=== PATIENT | female | born 1960 | race Caucasian/White ===

== ENCOUNTER 2020-09-09 15:05 | Outpatient (REF) | payer OTHER, SELFPAY ==
[2020-09-09 16:42] LABS: Anion Gap 13 (12-20); Blood Urea Nitrogen 17 mg/dL (9-16); Calcium 9.3 mg/dL (8.4-10.2); Carbon Dioxide 30 mmol/L (22-29); Chloride 104 mmol/L (96-108); Estimated Glomerular Filt Rate > 60; Glucose Random 80 mg/dL (60-115); Potassium 4.5 mmol/L (3.3-5.1); Sodium 142 mmol/L (135-145)
[2020-09-09 17:02] LABS: Erythrocyte Sedimentation Rate 7 MM/HR (0-20)
[2020-09-10 09:12] LABS: Lyme Abs Screen <0.90 index
[2020-09-10 09:22] LABS: Syphilis Screen Nonreactive (Nonreactive)
== END 2020-09-09 15:06 | disposition home or self-care (01) ==
LOC: HO.LAB 15:05
PROVIDERS: PCP Internal Medicine; Visit Provider Psychiatry & Neurology Neurology
DX: G37.9 Demyelinating disease of central nervous system, unspecified (principal)
CPT/HCPCS: 36415; 80048; 85652; 86618; 86780

== ENCOUNTER 2024-03-14 12:41 | Emergency (ER) | payer OTHER, SELFPAY ==
--- NOTE | ~2024-03-14 | CT_ITS ---
EXAMINATION: CT ABDOMEN AND PELVIS WITHOUT CONTRAST CLINICAL INFORMATION: Right flank pain COMPARISON: None available. TECHNIQUE: Multidetector volumetric imaging was performed from the superior aspect of the liver through the pubic symphysis. Sagittal and coronal reformatted images were obtained on the technologist's workstation. This CT examination was performed using dose optimization techniques as appropriate, variously including the following: *Automated exposure control *Adjustment of mA and/or kV according to patient size (this includes techniques or standardized protocols for targeted exams where dose is matched to indication/reason for exam; i.e. extremities or head) *Use of iterative reconstruction technique DLP: 521 mGy-cm FINDINGS: LUNG BASES: Trace nonspecific opacity posteromedial right lower lung may be atelectasis. LIVER, GALLBLADDER, AND BILIARY TREE: The extreme uppermost aspect of the abdomen is not included. Heterogeneous low-attenuation in the liver. This could be related to fatty change but is nonspecific. No suspicious focal liver lesion. There is cholelithiasis. There is no biliary dilation. PANCREAS: No suspicious abnormality SPLEEN: Normal ADRENAL GLANDS: Normal KIDNEYS AND URETERS: There is no dilation of the urinary collecting system on either side. There is no opaque renal calculus. There is no suspicious renal mass. 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 2 ureters are visualized to at least the mid abdomen. There are some calcifications in the pelvis which could be phleboliths. BLADDER: No suspicious abnormality. GASTROINTESTINAL TRACT: Large amount fecal residue distends the rectum. There are some colonic diverticula. No localized pericolonic fat stranding. No disproportionate small bowel dilation. No suspicious abnormality the stomach. ABDOMINAL WALL: No significant hernia is appreciated. LYMPH NODES: There are no enlarged abdominal or pelvic lymph nodes. There is no significant free intraperitoneal fluid. VASCULAR: There is no abdominal aortic aneurysm. PELVIC VISCERA: No suspicious abnormality. OSSEOUS STRUCTURES: No suspicious focal lesion CT/CT abdomen pelvis wo IV con IMPRESSION: There is no evidence of urinary obstruction. No convincing urinary calculus. There is cholelithiasis. No definite biliary dilation. Fleischner guidelines were followed.
[2024-03-14 14:11] VITALS: BP 144/70; PULSE 85; RESP 18; TEMP 36.6; O2SAT 97; BMI 28.8
--- NOTE | 2024-03-14 14:12 | ED.GENADULT ---
HPI - General Adult General Chief complaint: Back Pain/Injury Stated complaint: lower back and R side pain Time Seen by Provider: 03/14/24 14:57 Source: patient Mode of arrival: ambulatory Limitations: no limitations History of Present Illness HPI narrative: Patient is a 63-year-old female who presents emergency department for evaluation of right lower back pain. She reports onset approximately 1.5 months ago but has been progressively worsening. Over the last couple of weeks has been notably worse. She thought it was going to go away so she did not seek evaluation. However her pain persists in 1 out evaluation today. She denies associated fevers, chills, nausea, vomiting, recent unintentional weight loss, precipitating injury, bladder bowel dysfunction, saddle paresthesias, dysuria, hematuria, urinary frequency/urgency/hesitancy, constipation, diarrhea. She does admit to a history of chronic lower back pain over the past 2 years for which she was previously taking ibuprofen 800 mg, but her primary care doctor had advised her against taking this frequently. Related Data Previous Rx's ?Medication ?Instructions ?Recorded polyethylene glycol 3350 17 17 g PO DAILY #119 grams 03/14/24 gram/dose oral powder (Miralax) sennosides 8.6 mg capsule (senna) 8.6 mg PO BEDTIME PRN constipation 03/14/24 #10 caps Allergies Allergy/AdvReac Type Severity Reaction Status Date / Time Sulfa (Sulfonamide Allergy Unknown RASH Verified 03/14/24 14:14 Antibiotics) [SULFA (SULFONAMIDE ANTIBIOTICS)] Review of Systems Review of Systems: Yes all other systems are reviewed and are negative [facility] Past Medical History Attestation statement: The following information was validated with the patient. Source: old records reviewed Social History Social History Advance Directives: No Advance Directives Information Provided: Yes Do you have a plan to hurt others: No Plan Physical Exam ED Vital Signs: Vital Signs - 24 hr 03/14/24 14:11 Temperature 97.9 F Pulse Rate 85 Respiratory Rate 18 Blood Pressure 144/70 H Pulse Oximetry 97 Oxygen Delivery Method Room Air BMI result Body Mass Index 28.8 Appearance: Alert.?Oriented to person, place and time. No acute distress.?Normal affect. Eyes: Pupils equal, round and reactive to light.? ENT: Pharynx normal.?? Neck: Normal inspection.? Neck supple.?? CVS: Heart sounds normal. Normal heart rate and rhythm.? Pulses normal.?? Respiratory: No respiratory distress.? Lung sounds clear to auscultation bilaterally?? Abdomen: Soft and non-tender. Normoactive bowel sounds. Right CVA tenderness? Skin: Skin warm and dry.? Normal skin color.? Extremities: No lower extremity edema.? Neuro: Moves all extremities spontaneously. Sensation intact bilaterally. Ambulates with normal steady gait. Course Course Course Narrative: This is an RME: Additional HPI, ROS, PE not included below will be deferred to primary provider. RME assessment and note performed by: Sammi Cabrera PA-C This is a [id number] who presents to the ER with a complaint of back pain and right sided flank pain x 1.5 months, worsening over the last several weeks. Patient has tenderness palpation along the right flank. Plan: Labs, UA, CT scan Medications Administered Discontinued Medications Generic Name Dose Route Start Last Admin Trade Name Freq PRN Reason Stop Dose Admin Ketorolac Tromethamine 30 mg 03/14/24 16:08 03/14/24 16:30 Ketorolac Tromethamine 30 Mg/Ml Vial IM 03/14/24 16:09 30 mg ONCE ONE Administration Medical Decision Making Medical Decision Making MDM Narrative: Patient is a 63-year-old female past medical history of hyperlipidemia, chronic back pain who presents emergency department today for evaluation of right-sided back pain by her account is atypical from her usual back pain. Progressive worsening over the past 1.5 months. On evaluation she does have notable tenderness over the right flank. Serum labs were obtained CBC is without leukocytosis anemia or thrombocytopenia. No notable electrolyte derangement, no DELMAR. Found to have mild unconjugated hyper bilirubinemia of 1.4 with direct bili 0.4, minimally elevated AST/ALT 33/37 and lipase within normal range. Urinalysis without compelling evidence of urinary tract infection or microscopic hematuria. A CT of the abdomen and pelvis w revealed no acute abnormality/calculi or obstructive urological pathology. However, there is a large amount of stool found within the rectal vault, concerning that constipation may be contributing to her symptoms Differential Diagnosis Differential Diagnoses: The differential diagnosis associated with the presentation includes (Strain, acute on chronic back pain, hydronephrosis, renal colic, ureteral calculi, pyelonephritis, urinary tract infection, constipation) Admission/Observation Consideration of admission/observation: Escalation of care including admission/observation considered Lab Data MDM Lab Attestation statement: I reviewed the patient's lab results. (See narrative above) 03/14/24 15:11 03/14/24 15:11 Labs: Lab Results 03/14/24 03/14/24 Range/Units 14:57 15:11 WBC 6.7 (4.8-10.8) X10*3/uL RBC 5.55 H (4.20-5.50) X10*6/uL Hgb 15.1 (12.0-16.0) g/dl Hct 47.2 H (37.0-47.0) % MCV 85.0 (80.0-98.0) fL MCH 27.2 (27.0-33.0) pg MCHC 32.0 (31.0-35.0) g/dl RDW 11.9 (11.0-16.0) % Plt Count 172 (160-400) X10*3/uL MPV 10.8 (9.4-12.3) fL Immature Gran % (Auto) 0.3 (0.0-0.4) % Neut % (Auto) 51.1 (45-73) % Lymph % (Auto) 38.6 (20-40) % [place] % (Auto) 7.8 (2-11) % Eos % (Auto) 1.4 (0-4) % Baso % (Auto) 0.8 (0-2) % Lymph # (Auto) 2.6 (1.2-4.9) X10*3/uL [place] # (Auto) 0.5 (0.1-1.2) X10*3/uL Eos # (Auto) 0.1 (0.0-0.4) X10*3/uL Baso # (Auto) 0.1 (0.0-0.2) X10*3/uL Abs Immat Gran (auto) 0.02 (0.00-0.03) X10*3/uL Absolute Neuts (auto) 3.4 (2.0-8.3) x10*3/uL Absolute Nucleated RBC 0.000 (0.0-0.012) X10*3/uL Nucleated RBC % (auto) 0.0 (0.0-0.2) /100WBC Sodium 142 (135-145) mmol/L Potassium 4.1 (3.3-5.1) mmol/L Chloride 110 H (96-108) mmol/L Carbon Dioxide 23 (22-29) mmol/L Anion Gap 13 (12-20) BUN 20 H (9-16) mg/dL Creatinine 0.83 (0.5-1.4) mg/dL Estim Creat Clear Calc 69.3 Estimated GFR > 60 Random Glucose 80 (60-115) mg/dL Calcium 10.2 D (8.4-10.2) mg/dL Magnesium 2.2 (1.6-2.6) mg/dL Total Bilirubin 1.4 H (0.0-1.0) mg/dL Direct Bilirubin 0.4 (0.0-0.5) mg/dL AST 33 H (5-31) U/L ALT 37 H (0-31) U/L Alkaline Phosphatase 110 (39-117) U/L Total Protein 7.6 (6.5-8.0) g/dL Albumin 4.4 (3.5-5.0) g/dL Lipase 20 (8-78) U/L Urine Color Yellow Urine Appearance Clear Urine pH 7.0 (5.0-9.0) Ur Specific [place] <= 1.005 (1.005-1.025) Urine Protein Negative (Neg-Trace) mg/dL Urine Glucose (UA) Negative (Negative) mg/dL Urine Ketones Negative (Negative) mg/dL Urine Blood Negative (Negative) Urine Nitrite Negative (Negative) Ur Leukocyte Esterase Trace H (Negative) Urine RBC 0-2 (0-2) /HPF Urine WBC 0-5 (0-5) /HPF Ur Squamous Epith Cells 0-2 (0-2) /HPF Urine Bacteria None Seen (None Seen) Hyaline Casts 0-2 (0-2) /LPF Independent Interpretation I performed an independent interpretation of an: CT Scan Interpretation: No calculi, there was a large amount of stool within the rectal vault Radiology Impression Discussion of test interpretation with radiology: I have reviewed the radiologist's reading. Radiologist Impression: CT/CT abdomen pelvis wo IV con IMPRESSION: There is no evidence of urinary obstruction. No convincing urinary calculus. There is cholelithiasis. No definite biliary dilation. External Record Review External record reviewed: Outpatient record Prescription Management I considered prescription management with: Other (Laxative) Discharge Plan Discharge Clinical Impression: Constipation Patient Disposition: Home, Self-Care Instructions: Constipation (ED) Additional Instructions: As discussed, your workup today is concerning for constipation, you have a large amount of stool within your rectum that may be resulting in pain you are experiencing. Please consider taking senna daily, you may stop taking this if you subsequently developed diarrhea. If you do not have a bowel movement after 2 days, consider taking MiraLax daily, please be advised you will need to consume an adequate amount of water with MiraLax as instructed. Please follow-up with your primary care doctor. You may return back to emergency department any new or worsening symptoms or concerns. Prescriptions: New senna 8.6 mg capsule 8.6 mg PO BEDTIME PRN (Reason: constipation) Qty: 10 0RF polyethylene glycol 3350 [Miralax] 17 gram/dose powder 17 g PO DAILY Qty: 119 0RF Referrals: Physician,None [Primary Care Provider] - Print Language: Albanian
[2024-03-14 15:17] LABS: MANUAL DIFF FLAG NO
--- NOTE | 2024-03-14 15:19 | MHC.EDTECH ---
Difficult venipuncure. Attempted x2. Obtained assistance from [employer], attempt x2 as well. Was able to collect a small sample and we did send that to lab.
[2024-03-14 15:20] LABS: Basophils Absolute Auto 0.1 X10*3/uL (0.0-0.2); Basophils Percent Auto 0.8 % (0-2); Eosinophils Absolute Auto 0.1 X10*3/uL (0.0-0.4); Eosinophils Percent Auto 1.4 % (0-4); Hematocrit 47.2 % (37.0-47.0); Hemoglobin 15.1 g/dl (12.0-16.0); Imm Gran Abs Auto 0.02 X10*3/uL (0.00-0.03); Imm Gran Pct Auto 0.3 % (0.0-0.4); Lymphocytes Absolute Auto 2.6 X10*3/uL (1.2-4.9); Lymphocytes Percent Auto 38.6 % (20-40); Mean Corpuscular Hemoglobin 27.2 pg (27.0-33.0); Mean Platelet Volume 10.8 fL (9.4-12.3); Monocytes Absolute Auto 0.5 X10*3/uL (0.1-1.2); Monocytes Percent Auto 7.8 % (2-11); Neutrophils Absolute Auto 3.4 x10*3/uL (2.0-8.3); Neutrophils Percent Auto 51.1 % (45-73); Platelet Count 172 X10*3/uL (160-400); Red Blood Count 5.55 X10*6/uL (4.20-5.50); Red Cell Distribution Width 11.9 % (11.0-16.0); White Blood Count 6.7 X10*3/uL (4.8-10.8)
[2024-03-14 15:20] LABS: Appearance Urine Clear; Color Urine Yellow; Glucose Urine UA Negative (Negative); Leukocyte Esterase Urine Trace (Negative); Nitrite Urine Negative (Negative); Specific Gravity - Urine <= 1.005 (1.005-1.025); UMIC TRIGGER UACC YES; Urine Blood Negative (Negative); Urine Ketones Negative (Negative); Urine Protein Negative (Neg-Trace)
[2024-03-14 15:25] LABS: Bacteria Urine None Seen (None Seen); Hyaline Casts Urine 0-2 /LPF (0-2); RBC Urine 0-2 /HPF (0-2); Squamous Epithelial Cell Urine 0-2 /HPF (0-2); WBC Urine 0-5 /HPF (0-5)
[2024-03-14 15:34] LABS: Alanine Aminotransferase 37 U/L (0-31); Albumin Level 4.4 g/dL (3.5-5.0); Alkaline Phosphatase 110 U/L (39-117); Anion Gap 13 (12-20); Aspartate Amino Transferase 33 U/L (5-31); Bilirubin Direct 0.4 mg/dL (0.0-0.5); Bilirubin Total 1.4 mg/dL (0.0-1.0); Blood Urea Nitrogen 20 mg/dL (9-16); Calcium 10.2 mg/dL (8.4-10.2); Carbon Dioxide 23 mmol/L (22-29); Chloride 110 mmol/L (96-108); Creatinine Clr Calc Pharmacy 69.3; Estimated Glomerular Filt Rate > 60; Glucose Random 80 mg/dL (60-115); Lipase 20 U/L (8-78); Magnesium 2.2 mg/dL (1.6-2.6); Potassium 4.1 mmol/L (3.3-5.1); Sodium 142 mmol/L (135-145); Total Protein 7.6 g/dL (6.5-8.0)
[2024-03-14] MEDS: Ketorolac Tromethamine 30 MG/ML VIAL IM (16:30)
[2024-03-14 18:49] VITALS: BP 139/80; PULSE 89; RESP 14; TEMP 36.6; O2SAT 99
[2024-03-14 19:06] VITALS: BP 139/80; PULSE 89; RESP 14; TEMP 36.6; O2SAT 99
== END 2024-03-14 19:00 | disposition home or self-care (01) ==
PROVIDERS: Physician Assistant Medical; Emergency Provider Student in an Organized Health Care Education/Training Program
DX: K59.00 Constipation, unspecified (principal); M54.50 Low back pain, unspecified
CPT/HCPCS: 36415; 74176; 80048; 80076; 81001; 83690; 83735; 85025; 96372; 96374; 99283; 99284; J1885